=== PATIENT | female | born 1995 | race Caucasian/White ===

== ENCOUNTER 2020-01-22 17:32 | Emergency (ER) | payer OTHER ==
[~2020-01-22] VITALS: Ht 170.2 cm; Wt 58.1 kg
[2020-01-22 17:42] VITALS: BP 126/74
[2020-01-22 18:03] VITALS: BP 126/74
== END 2020-01-22 18:03 | disposition home or self-care (01) ==
LOC: MED 17:32
DX: R05 Cough (principal); R50.9 Fever, unspecified; J02.9 Acute pharyngitis, unspecified; Z20.828 Contact with and (suspected) exposure to other viral communicable diseases
CPT/HCPCS: 99282; 99283; U0003-CS

== ENCOUNTER 2020-01-27 13:54 | Emergency (ER) | payer OTHER | END 2020-01-27 14:23 | disposition home or self-care (01) | LOC: MED 13:54 | DX: Z53.21 Procedure and treatment not carried out due to patient leaving prior to being seen by health care provider (principal) | CPT/HCPCS: 99283; U0003-CS ==